=== PATIENT | male | born 1990 | race African-American/Black ===

== ENCOUNTER 2017-02-19 07:06 | Emergency (ER) | payer MEDICAID ==
[~2017-02-19] VITALS: Ht 175.3 cm; Wt 172.5 kg
[2017-02-19] MEDS ORDERED: ALBUTEROL (0.083%) 2.5MG/3ML NEB HHN ONE (08:00)
[2017-02-19 10:42] VITALS: BP 125/79
== END 2017-02-19 11:46 | disposition home or self-care (01) ==
LOC: ER 07:37
DX: J06.9 Acute upper respiratory infection, unspecified (principal); J32.9 Chronic sinusitis, unspecified; I10 Essential (primary) hypertension
CPT/HCPCS: 71010; 94640; 99283; J7611; Z7610

== ENCOUNTER 2018-12-16 12:42 | Emergency (ER) | payer MEDICAID ==
[~2018-12-16] VITALS: Ht 175.3 cm; Wt 179.1 kg
[2018-12-16 13:58] VITALS: BP 159/82
== END 2018-12-18 ==
LOC: ER 12-18 10:23
DX: H60.501 Unspecified acute noninfective otitis externa, right ear (principal); I10 Essential (primary) hypertension; H40.9 Unspecified glaucoma
CPT/HCPCS: 99283

== ENCOUNTER 2022-06-07 00:43 | Emergency (ER) | payer MEDICAID ==
[~2022-06-07] VITALS: Ht 177.8 cm; Wt 170.4 kg
[2022-06-07] MEDS ORDERED: ACETAMINOPHEN 325MG TABLET PO ONE (01:30)
[2022-06-07 02:34] LABS: BASOPHILS % 0.7 % (0.0-2.0); EOSINOPHILS % 0.2 % (0.0-5.0); HEMATOCRIT. 43.5 % (42.0-52.0); HEMOGLOBIN. 15.2 g/dL (14.0-18.0); LYMPHOCYTES % 11.8 % (20.0-50.0); MEAN CORPUSCULAR HEMOGLOBIN 28.4 pg (28.0-32.0); MEAN CORPUSCULAR VOLUME 81.3 fL (80.0-94.0); MEAN PLATELET VOLUME 8.3 fl (7.4-10.4); NEUTROPHILS % 83.3 % (40.0-76.0); PLATELET 297 x1000/uL (130-400); RED BLOOD CELL COUNT 5.35 mill/uL (4.7-6.1); RED CELL DISTRIBUTION WIDTH 13.5 % (11.6-14.6)
[2022-06-07 02:43] LABS: CHLORIDE 108 mEq/L (98-107)
[2022-06-07] MEDS ORDERED: SODIUM CHLORIDE 0.9% 1,000 ML IV ONE (06:00)
[2022-06-07] MEDS ORDERED: IBUPROFEN 600MG TABLET PO ONE (06:00)
[2022-06-07 06:38] VITALS: BP 120/66
== END 2022-06-07 08:13 | disposition home or self-care (01) ==
LOC: ER 00:43
DX: B34.9 Viral infection, unspecified (principal); I10 Essential (primary) hypertension; Z20.822 Contact with and (suspected) exposure to COVID-19
CPT/HCPCS: 36415; 71045; 80053; 84484; 85025; 87426; 87804; 93005; 99285; C9803; J7030; Z7610